=== PATIENT | female | born 1940 | race Caucasian/White ===

== ENCOUNTER → 2016-12-28 | Day surgery (SDC) | payer MEDICARE ==
[~2016-12-28] MED LIST: ACETAMINOPHEN 1000 MG/100 ML VIAL IV ONE; ACETAMINOPHEN/HYDROcodone 325 MG/5 MG TAB ONE; ASPI325T PO; BACITRACIN IM FOR SOLN 50,000 UNIT VIAL ONE; BUPIVACAINE LIPOSOME PF 1.3% 20 ML VIAL ONE; BUPIVACAINE/EPINEPHRINE 0.25% 50 ML VIAL ONE; CETI10 PO; CYCL-36 PO; FISHCAP PO; GENTAMICIN SULFATE 80 MG/2 ML VIAL ONE; ISOSULFAN BLUE 50 MG/5 ML VIAL SQ ONE; LACTATED RINGER'S 1000 ML INJ 1,000 ML ONE; LEVO100T4 PO; LIDO5DIS35 TD; LIDOCAINE 1%/EPINEPHrine 1:100,000 SOLN 20 ML VIAL ONE; MIDAZOLAM HCL 2 MG/2 ML VIAL ONE; MORPHINE SULFATE 4 MG/ML INJ ONE; ONDANSETRON HCL 4 MG/2 ML VIAL IV PUSH ONE; OXYB5TAB33 PO; PREM0.45 PO; PROPOFOL 200 MG/20 ML AMP IV ONE; SODIUM CHLOR 0.9% 250 ML BAG IV ONE; SODIUM CHLORIDE 0.9% 20 ML VIAL ONE; VANCOMYCIN HCL 1000 MG VIAL ONE; ceFAZolin INJ 1,000 MG VIAL ONE
--- NOTE | 2016-12-28 15:18 | TN ---
cc: HARSHA BUI M.D. DATE OF SURGERY: 12/28/2016 PREOPERATIVE DIAGNOSIS Invasive ductal carcinoma of the left breast. POSTOPERATIVE DIAGNOSIS Invasive ductal carcinoma of the left breast. PROCEDURE 1. Right simple mastectomy. 2. Right breast reconstruction utilizing a direct implant reconstruction and a 6 x 16 AlloDerm. 3. Left breast construction utilizing direct implant and 6 x 16 AlloDerm. The serial number of the right breast implant device is [id number], style 400 FX, volume 450. The implant data on the left breast device is serial number [id number], it is a style 410 FX, volume 450. SURGEON Harsha Bui MD ANESTHESIA LMA general. I also utilized a total of 120 of diluted lidocaine with epinephrine mixed with 0.4% Marcaine at 2:1 ratio. DRAINS Total of four two 7 mm SLOANE drains and two 10 mm SLOANE drains. PROCEDURE She was properly consented, marked and properly anesthetized. The skin was sterilized with Betadine solution and sterile draping applied. Isolation of nipple-areolar complex took place. Through a 7-8 cm inframammary incision a simple mastectomy was carried out, by preserving a good amount of subcutaneous tissue, the landmarks were the following: parasternal area second to third intercostal space, anterior axillary line and 7-8 intercostal space. Posteriorly was at the fascia of the pectoris major muscle which was left with the muscle. Once it was properly removed I proceeded and tagged these as a short superior, long lateral for permanent analysis. A sample of the retroareolar tissue was sent to frozen section which indeed failed to demonstrate any further pathology. With this I proceeded and assured meticulous hemostasis and irrigated with triple antibiotic solution. Reinforced the inferior mammary line as well as the anterior axillary line. Elevation of the pectoris major muscle was carried out by keeping the inferomedial fibers intact as the patient had unusual very nice long muscle. I did reinforce the lower lateral pole though utilizing a 6 x 16 AlloDerm which was cut to fit the defect. 2-0 Monocryl suture was utilized to do so. At this point I proceeded and introduced the implant utilizing no-touch technique and fully closed the pocket wrapping the rest of the sterile dermal matrix around the lateral lower pole. Two Of the SLOANE drains that was proceed and stay in the retropectoral plane, 7 mm SLOANE and the other one 10 mm SLOANE on the supra-pectoral plane was left in place, brought out through a separate stab wound. The wound at this point was closed in multiple 2-0 Monocryl suture layers and I proceeded and performed application of a Prineo Dermabond to the skin. The SLOANE drains were dressed utilizing Biopatch as well as Tegaderm. Excellent viability of tissue was noted at the end of this case. At this point attention was directed to the left breast where indeed Dr. Karl Almonte had performed a mastectomy and some axillary node sampling, and please for the details of the surgery refer to his dictation. As I encountered viable tissue and an inframammary incision with an extra 4-5 cm supra-areolar incision what appears to be that the tumor was so close to the skin, that had to be removed. Either way I went ahead and closed this wound created by Dr. Almonte with complex repair for a grand total of approximately 5 cm utilizing the Elyssa's fascia, dermis and subcu and then I reinforced the anterior axillary line and the inframammary fold. The elevation of the pectoris major muscles was carried out in the usual manner and keeping the inferomedial fibers attached. Reinforcement of the inferolateral wall was done utilizing a 6 x 16 AlloDerm which was secured utilizing 2-0 Monocryl suture. At this point I proceeded and performed the introduction of the implant and the rest of the AlloDerm was trimmed to fit the area without any further problems. I also closed the wounds of the mastectomy in the inframammary fold utilizing a combination of 2-0 Monocryl suture in the Elyssa's fascia, dermis and subcu. Also two drains were left as previously described in the left breast, 7 and 10 [address] respectively[address]uture in place and reinforced with Biopatch and Dermabond. Good viability of tissue was noted at the end of the case. Absorbent dressings were applied including fluffs and hypoallergenic tape. The patient was awakened, extubated in the operating room and transferred back to the postanesthesia care unit in stable condition. No complication was appreciated. The patient tolerated the procedure fairly well. MD VIOLET Chou/LUSI FERNANDO /1:52 PM /2:44 PM MANUELA
--- NOTE | 2017-01-01 13:18 | MP ---
cc: KARL ALMONTE M.D., SERGIO M. M.D. DATE OF SURGERY 12/28/2016 PROCEDURES 1. Left simple mastectomy. 2. Excision left axillary sentinel lymph node x 1 with axillary tissue. 3. Excision of additional skin ellipse. SURGEON Karl Almonte MD [employer]SEM[employer] SUPERVISOR MATT Gardner The [employer]'s presence was required throughout the entirety of the procedure. She was required for retraction, resection of specimen and for assistance in the entire procedure. SPECIMEN Frozen section sent of the retroareolar tissue and primary tumor. PROCEDURE IN DETAIL The patient was sent to the Department of Nuclear Medicine where she underwent injection with Technetium 99 sulfur colloid. She was taken back for imaging and a left axillary sentinel lymph node was noted and marked by the radiologist. The patient was then taken to the operating room where she was placed on the operating table and underwent general anesthesia with laryngeal mask. The chest was prepped and draped bilaterally. Time-out was taken confirming the correct patient site and procedures to be performed. Please see Dr. Bui's dictation for the right mastectomy which was performed by him. The undersigned then made an incision on the left side just superior to the inframammary fold and dissection was carried out creating a skin flap. Care was taken to excise the area of the tumor as well as the retroareolar tissue. The retroareolar tissue was submitted separately for frozen section analysis. This demonstrated no evidence of tumor in the retroareolar tissue, specifically at the 12 o'clock position which was nearest to the primary tumor site. This was performed as a-nipple sparing mastectomy was contemplated and was desired by the patient. The breast tissue was removed in a medial to lateral fashion. After this was removed, the primary tumor was excised from the subcutaneous tissue and frozen section of this was taken and submitted with specific attention to the superficial margin. This was seen to have no tumor on the superficial margin. However, this was felt to be clinically extremely close and, after discussion with the plastic surgeon, an ellipse of skin was removed where the tumor was closest to the skin. This was accomplished after the sentinel lymph node was removed from the left axilla. This was located with the navigator probe, excised and passed off the table. Some axillary tissue was excised with this and this was submitted as well. After excision of the additional skin ellipse which was located just superficial to the tumor, Dr. Bui finished the reconstruction on the left breast. Please see his dictation for this portion of the procedure. The patient tolerated the procedure extremely well and was hemodynamically stable throughout the entire procedure. MD BESSY Thomas/SSB /11:43 PM /2:31 PM MTDWinifred
== END | disposition home or self-care (01) ==
LOC: ESDC 06:43
PROVIDERS: ATTEND Plastic Surgery
DX: C50.912 Malignant neoplasm of unspecified site of left female breast (principal)
CPT/HCPCS: 00402; 01610; 15777; 19303; 19340; 38525; 38792; 88305; 88307; 88331; C1789; J0131; J0690; J1580; J2250; J2270; J2405; J3010; J3370; J7050; J7120; Q4116; 88309; C9290; Q9968